=== PATIENT | male | born 1965 | race African-American/Black ===

== ENCOUNTER 2017-02-02 15:04 | Emergency (ER) | payer SELFPAY ==
[~2017-02-02] VITALS: Ht 175.3 cm; Wt 52.2 kg
[2017-02-02 15:36] VITALS: BP 121/80
--- NOTE | 2017-02-02 15:47 | PHYS DOC ---
Past Medical History Past Medical History: No Pertinent History Past Surgical History: No Surgical History Alcohol Use: Occasionally Drug Use: None Adult General Chief Complaint Chief Complaint: MECHANICAL FALL HPI HPI Patient is a 51 year old male with no significant medical history who presents with bilateral anterior rib pain and left shoulder pain mild in nature worse on movement that began 3 days ago after he missed 2 steps and fell down. Patient denies any loss of consciousness. Review of Systems Review of Systems Constitutional: Denies fever or chills [] Eyes: Denies change in visual acuity, redness, or eye pain [] HENT: Denies nasal congestion or sore throat [] Respiratory: bilateral anterior rib pain Cardiovascular: No additional information not addressed in HPI [] GI: Denies abdominal pain, nausea, vomiting, bloody stools or diarrhea [] : Denies dysuria or hematuria [] Musculoskeletal: left shoulder pain Integument: Denies rash or skin lesions [] Neurologic: Denies headache, focal weakness or sensory changes [] Endocrine: Denies polyuria or polydipsia [] Allergies Allergies Allergies Coded Allergies Type Severity Reaction Last Updated Verified No Known Drug Allergies 02/02/17 No Physical Exam Physical Exam Constitutional: Well developed, well nourished, no acute distress, non-toxic appearance. [] HENT: Normocephalic, atraumatic, bilateral external ears normal, oropharynx moist, no oral exudates, nose normal. [] Eyes: PERRLA, EOMI, conjunctiva normal, no discharge. [] Neck: Normal range of motion, no tenderness, supple, no stridor. [] Cardiovascular:Heart rate regular rhythm, no murmur [] Lungs & Thorax: Bilateral breath sounds clear to auscultation [] Abdomen: Bowel sounds normal, soft, no tenderness, no masses, no pulsatile masses. [] Skin: Warm, dry, no erythema, no rash. [] Back: No tenderness, no CVA tenderness. [] Extremities: No tenderness, no cyanosis, no clubbing, ROM intact, no edema. [] Neurologic: Alert and oriented X 3, normal motor function, normal sensory function, no focal deficits noted. [] Psychologic: Affect normal, judgement normal, mood normal. [] Current Patient Data Vital Signs Vital Signs Date Time Temp Pulse Resp B/P (MAP) Pulse Ox O2 Delivery O2 Flow Rate FiO2 02/02/17 15:36 98.0 81 18 98 Room Air 98.0 EKG EKG [] Radiology/Procedures Radiology/Procedures []PROCEDURE: CHEST PA & LATERAL; SHOULDER 2+V LEFT Left shoulder, 3 views, 02/02/2017: History: Fall, shoulder pain No fracture or dislocation is identified. The periarticular soft tissues are unremarkable. IMPRESSION: No acute left shoulder abnormality is detected. Chest, 2 views, 02/02/2017: History: Pain after fall The heart size is normal. The lungs are clear. There is mild blunting of the right lateral costophrenic angle. This is probably due to scarring rather than pleural fluid since the posterior costophrenic angles are sharp. There is no evidence of pneumothorax. IMPRESSION: 1. Probable scarring in the right lateral costophrenic angle. 2. No acute cardiopulmonary abnormality is detected. DICTATED and SIGNED BY: MALIKA CRAIG MD DATE: 02/02/17 1604 CC: TREMAYNE BERGER APRN; NO PCP; NON,STAFF ~ Course & Med Decision Making Course & Med Decision Making Pertinent Labs and Imaging studies reviewed. (See chart for details) Patient is in the ED with complaints of bilateral rib pain and left shoulder pain after falling 3 days ago. Chest x-ray left shoulder x-rays interpreted by radiologist are negative for any acute findings. Patient was discharged with naproxen and Flexeril. Follow-up with his own PCP in 1-2 weeks. Katina Disclaimer Katina Disclaimer This electronic medical record was generated, in whole or in part, using a voice recognition dictation system. Departure Departure Impression: Primary Impression: Fall from standing Additional Impressions: Contusion of rib on left side Contusion of rib on right side Contusion of left shoulder Disposition: 01 HOME, SELF-CARE Condition: STABLE Referrals: NO PCP (PCP) Follow-up with your doctor in 1-2 weeks. Patient Instructions: Contusion, Fall Prevention and Home Safety Additional Instructions: You were seen for ribs and left shoulder contusion after falling. Apply ice to the affected areas. Take the prescribed medicines as needed for pain. Do not drive on the cyclobenzaprine. You can follow-up with your doctor in the next 1- 2 weeks. Come back to the ED if symptoms worsen. Scripts Naproxen (NAPROXEN) 500 Mg Tablet.dr 1 TAB PO BID, #60 TAB 1 Refill Prov: TREMAYNE BERGER APRN 02/02/17 Cyclobenzaprine Hcl (CYCLOBENZAPRINE HCL) 10 Mg Tablet 1 TAB PO TID, #30 TAB Prov: TREMAYNE BERGER APRN 02/02/17 Problem Qualifiers Primary Impression: Fall from standing Encounter type: initial encounter Qualified Codes: W19.XXXA - Unspecified fall, initial encounter Additional Impressions: Contusion of rib on left side Encounter type: initial encounter Qualified Codes: S20.212A - Contusion of left front wall of thorax, initial encounter Contusion of rib on right side Encounter type: initial encounter Qualified Codes: S20.211A - Contusion of right front wall of thorax, initial encounter Contusion of left shoulder Encounter type: initial encounter Qualified Codes: S40.012A - Contusion of left shoulder, initial encounter TREMAYNE BERGER [employer] Feb 02, 2017 15:47
--- NOTE | 2017-02-02 16:09 | RAD ---
Left shoulder, 3 views, 02/02/2017: History: Fall, shoulder pain No fracture or dislocation is identified. The periarticular soft tissues are unremarkable. IMPRESSION: No acute left shoulder abnormality is detected. Chest, 2 views, 02/02/2017: History: Pain after fall The heart size is normal. The lungs are clear. There is mild blunting of the right lateral costophrenic angle. This is probably due to scarring rather than pleural fluid since the posterior costophrenic angles are sharp. There is no evidence of pneumothorax. IMPRESSION: 1. Probable scarring in the right lateral costophrenic angle. 2. No acute cardiopulmonary abnormality is detected.
[2017-02-02] MEDS ORDERED: NAPR500T8 PO (16:13)
[2017-02-02] MEDS ORDERED: CYCL10TA2 PO (16:13)
[2017-02-02] MEDS ORDERED: NAPROXEN 500 MG TABLET PO STA (16:27)
== END 2017-02-02 16:42 | disposition home or self-care (01) ==
LOC: ER 15:04
DX: S20.211A Contusion of right front wall of thorax, initial encounter (principal); S20.212A Contusion of left front wall of thorax, initial encounter; S40.012A Contusion of left shoulder, initial encounter; W10.9XXA Fall (on) (from) unspecified stairs and steps, initial encounter; Y93.89 Activity, other specified; Y92.89 Other specified places as the place of occurrence of the external cause; Y99.8 Other external cause status
CPT/HCPCS: 71020; 73030; 99284